=== PATIENT | female | born 1970 | race Caucasian/White ===

== ENCOUNTER 2022-10-30 10:55 | Emergency (ER) | payer OTHER ==
[2022-10-30 11:06] VITALS: RESP 18; TEMP 98.4; BMI 40.4
[2022-10-30 12:36] LABS: BASO % 0.4 % (0-2.0); EOS % 1.8 % (0-4.5); HEMATOCRIT 39.8 % (32.4-45.2); HEMOGLOBIN 13.5 GM/dL (10.7-15.3); LYMPH % 16.6 % (8-40); MCH 29.4 pg (25.7-33.7); MCHC 33.9 g/dl (32.0-36.0); MEAN CELL VOLUME 86.9 fl (80-96); MEAN PLT VOLUME 8.7 fl (7.5-11.1); MONO % 5.9 % (3.8-10.2); NEUT % 75.3 % (42.8-82.8); PLATELET COUNT 296 10^3/uL (134-434); RBC 4.59 M/mm3 (3.60-5.2); RDW 13.3 % (11.6-15.6); WHITE BLOOD COUNT 10.3 K/mm3 (4.0-10.0)
[2022-10-30 12:44] LABS: POTASSIUM 3.9 mmol/L (3.5-5.1)
[2022-10-30 12:48] LABS: ALBUMIN 3.4 g/dl (3.4-5.0); BLOOD UREA NITROGEN 11.5 mg/dL (7-18)
[2022-10-30 12:51] LABS: CREATININE 0.7 mg/dL (0.55-1.3)
[2022-10-30 12:52] LABS: BILIRUBIN,TOTAL 0.4 mg/dL (0.2-1); TOT PROT 7.3 g/dl (6.4-8.2)
[2022-10-30 14:07] VITALS: BP 139/77; PULSE 74
== END 2022-10-30 14:10 | disposition home or self-care (01) ==
LOC: JER 10:55
DX: Z20.1 Contact with and (suspected) exposure to tuberculosis (principal); R06.02 Shortness of breath; R51.9 Headache, unspecified; R68.83 Chills (without fever); R09.81 Nasal congestion; R05.9 Cough, unspecified; R07.0 Pain in throat; J06.9 Acute upper respiratory infection, unspecified; M79.10 Myalgia, unspecified site; Z20.822 Contact with and (suspected) exposure to COVID-19
CPT/HCPCS: 0241U-QW; 36415; 71045-TC-FY; 80053; 84484; 85025; 86480; 93005; 93010; 99285-25